=== PATIENT | female | born 1995 | race American Indian/Alaskan Native ===

== ENCOUNTER 2021-06-16 14:52 | Emergency (ER) | payer SELFPAY ==
[2021-06-16 15:08] VITALS: BP 138/74
== END 2021-06-16 16:15 | disposition left against medical advice (07) ==
LOC: ED 14:52
DX: J45.909 Unspecified asthma, uncomplicated (principal); R07.9 Chest pain, unspecified; Z53.21 Procedure and treatment not carried out due to patient leaving prior to being seen by health care provider